=== PATIENT | male | born 2000 | race Caucasian/White ===

== ENCOUNTER 2021-02-12 12:59 | Emergency (ER) | payer OTHER, SELFPAY ==
--- NOTE | 2021-02-12 13:05 | ED.EXTPRO ---
HPI - Extremity Problem General Chief complaint: Extremity Injury, Lower Stated complaint: foot pain right Time Seen by Provider: 02/12/21 13:03 Source: patient and RN notes reviewed Mode of arrival: ambulatory History of Present Illness HPI Narrative: This is a 21-year-old male who presented to urgent care with swelling and pain to the dorsal part of his right foot. According to patient he recently purchased a new pair of work boots that he believes the top of his right foot causing him to have pain and swelling. Patient has no other associated symptoms. The patient denies SOB, CP, palpitation, extremity numbness, lightheadedness, dizziness, constipation, diarrhea, chills, or fever. No neurovascular deficiencies noted, pulses are palpable, capillary refill within normal limits. Related Data Allergies Allergy/AdvReac Type Severity Reaction Status Date / Time No Known Allergies Allergy Unknown Unverified 02/12/21 13:11 Review of Systems Review of Systems: A 14 organ system Review of Systems was performed and pertinent positives included in the HPI, otherwise remaining ROS is negative. [facility] Family History Family History (Updated 02/12/21 @ 13:05 by MADELYN Castro) Other Family history non-contributory Social History Social History Smoking status: Never smoker Alcohol intake: never Exam Narrative: GENERAL: This is a well-nourished, well-developed patient, in no apparent distress. HEAD: normocephalic, atraumatic. EYES: PERRL. Sclera clear/white. Vision is grossly intact. EARS: External ears normal, auditory canals clear and without drainage, TMs normal without perforation. Hearing grossly intact. NOSE: External nose normal with no obvious nasal discharge, nares without redness, no rhinorrhea. THROAT: Mucous membranes moist, posterior pharynx clear. NECK: Neck supple, non-tender without lymphadenopathy, masses or thyromegaly. CARDIOVASCULAR: Regular rate and rhythm without murmurs, gallops, or rubs. RESPIRATORY: Clear to auscultation. Breath sounds equal bilaterally. No wheezes, rales, or rhonchi. GASTROINTESTINAL: Abdomen soft, non-tender, nondistended. Bowel sounds are active. No hepato-splenomegaly, or palpable masses. No guarding. SKIN: warm, intact with no suspicious lesions or rash, good texture and turgor. NEURO: awake, alert, and oriented to person, place and time. There were no obvious focal neurologic abnormalities. Steady gait EXTREMITIES: Normal range of motion. Slight erythema and edema to dorsum of right foot no warmth noted. No calf tenderness. Negative Homans sign bilaterally. BACK: Nontender without deformity or crepitance. No flank tenderness. Course Vital Signs Vital signs: Vital Signs Temperature 98.1 F 02/12/21 13:10 Pulse Rate 61 02/12/21 13:10 Respiratory Rate 18 02/12/21 13:10 Blood Pressure 120/81 02/12/21 13:10 Pulse Oximetry 100 02/12/21 13:10 Temperature 98.1 F 02/12/21 13:10 Pulse Rate 61 02/12/21 13:10 Respiratory Rate 18 02/12/21 13:10 Blood Pressure 120/81 02/12/21 13:10 Pulse Oximetry 100 02/12/21 13:10 MDM - Extremity (Nontraumatic) Differential Diagnosis Differential diagnosis: Likely cellulitis, lower extremity edema and deep vein thrombosis of lower extremity Discharge Plan Discharge Clinical Impression: Localized swelling of right foot Patient Disposition: Home, Self-Care Condition: Stable Instructions: Antibiotic Form, R.I.C.E. 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 You may take over the counter tylenol and ibuprofen as needed for pain -Use prescription pain medication for
[2021-02-12 13:10] VITALS: BP 120/81; PULSE 61; RESP 18; TEMP 36.7; O2SAT 100
== END 2021-02-12 13:22 | disposition home or self-care (01) ==
LOC: EXPCOLL 13:04
PROVIDERS: Emergency Provider Nurse Practitioner
DX: R22.41 Localized swelling, mass and lump, right lower limb (principal); M79.671 Pain in right foot
CPT/HCPCS: 99213; G0463